=== PATIENT | male | born 1980 | race Caucasian/White ===

== ENCOUNTER → 2017-05-16 | Outpatient (CLI) | payer OTHER ==
[2017-05-16 09:11] LABS: Basophils % (A) 0 %; CH 30.3; CHCM 33.3; Eosinophils # (A) 0.2 k/uL (0-0.7); Eosinophils % (A) 3 %; HCT 46.2 % (39.0-53.0); HGB 15.5 gm/dL (13.0-17.5); Luc # (Auto) 0.12; Luc % (Auto) 2; Lymphocytes # (A) 1.4 k/uL (1.0-4.8); Lymphocytes % (A) 26 %; MCH 30.8 pg (25.0-35.0); MCHC 33.7 g/dL (31.0-37.0); MCV 91.5 fL (80.0-100.0); Mean Platelet Volume 7.5; Monocytes # (A) 0.4 k/uL (0-1.0); Monocytes % (A) 7 %; Neutrophils # (A) 3.3 k/uL (1.3-7.7); Neutrophils % (A) 61 %; RBC 5.05 m/uL (4.30-5.90); RDW 12.7 % (11.5-15.5); WBC 5.5 k/uL (3.8-10.6)
[2017-05-16 09:14] LABS: ALT 23 U/L (21-72); AST 22 U/L (17-59); Alkaline Phosphatase 47 U/L (38-126); Anion Gap 8 mmol/L; Blood Urea Nitrogen 18 mg/dL (9-20); Calcium 9.2 mg/dL (8.4-10.2); Carbon Dioxide 28 mmol/L (22-30); Chloride 102 mmol/L (98-107); Cholesterol 174 mg/dL (<200); Creatine Kinase 121 U/L (55-170); Glucose 95 mg/dL (74-99); HDL Cholesterol 46 mg/dL (40-60); Non-African American GFR(MDRD) >60 (>60 ml/min/1.73 sqM); Potassium 4.9 mmol/L (3.5-5.1); Sodium 138 mmol/L (137-145); Total Bilirubin 0.9 mg/dL (0.2-1.3); Total Protein 7.1 g/dL (6.3-8.2); Uric Acid 7.8 mg/dL (3.5-8.5)
[2017-05-16 09:57] LABS: Hemoglobin A1C 5.8 % (4.2-6.1)
== END | disposition home or self-care (01) ==
LOC: LABWHC1 08:28
PROVIDERS: ATTEND Internal Medicine
DX: E55.9 Vitamin D deficiency, unspecified (principal); I10 Essential (primary) hypertension; E78.1 Pure hyperglyceridemia
CPT/HCPCS: 36415; 80053; 80061; 82306; 82550; 83036; 84439; 84443; 84550; 85025

== ENCOUNTER 2017-06-24 14:16 | Emergency (ER) | payer OTHER ==
--- NOTE | 2017-06-24 15:08 | ED ---
Chest Pain HPI - General Chief Complaint: Chest Pain Stated Complaint: chest pain since 1030 am Time Seen by Provider: 06/24/17 15:03 Source: patient, RN notes reviewed Mode of arrival: ambulatory Limitations: no limitations - History of Present Illness Initial Comments: Is a 37-year-old male with a history of a cardiac workup many modalities since January of this year who presents with complaints of the onset of chest pain that radiated up to his left arm. She has last 1-2 hours sharp in nature did seem to get worse with moving his neck left or right. He has some lightheadedness with it is now essentially resolved. He denies any fevers chills cough phlegm production or other symptoms no trauma. MD Complaint: chest pain - Related Data Home Medications Medication Instructions Recorded Confirmed Aspirin [Adult Low Dose Aspirin EC] 81 mg PO HS 01/12/16 06/24/17 Gemfibrozil [Lopid] 600 mg PO BID 01/12/16 06/24/17 Lisinopril [Zestril] 20 mg PO HS 01/12/16 06/24/17 Spironolactone [Aldactone] 25 mg PO HS 06/24/17 06/24/17 Previous Rx's Medication Instructions Recorded Carvedilol [Coreg] 6.25 mg PO BID #180 tab 01/14/16 Cyclobenzaprine [Flexeril] 10 mg PO TID #14 tab 06/24/17 Ibuprofen 800 mg PO Q6HR PRN #20 tablet 06/24/17 Allergies Allergy/AdvReac Type Severity Reaction Status Date / Time No Known Allergies Allergy Verified 06/24/17 15:58 Review of Systems ROS Statement: Those systems with pertinent positive or pertinent negative responses have been documented in the HPI. ROS Other: All systems not noted in ROS Statement are negative. EKG Findings - EKG Results: EKG: interpreted by ERMD, sinus rhythm (Sinus showed a right bundle-branch block and minimal voltage criteria for LVH rate was 75 SC 154 QRS 168 daily since QTC of 14) Past Medical History Past Medical History: Chest Pain / Angina, GERD/Reflux, Hypertension History of Any Multi-Drug Resistant Organisms: None Reported Past Surgical History: No Surgical Hx Reported Additional Past Surgical History / Comment(s): "age 1- patch on hole in heart", Past Anesthesia/Blood Transfusion Reactions: No Reported Reaction Past Psychological History: No Psychological Hx Reported Smoking Status: Never smoker - Past Family History Father Family Medical History: Deep Vein Thrombosis (DVT) General Exam - General Exam Comments Initial Comments: This is a well-developed well-nourished awake alert oriented times 3 male Limitations: no limitations General appearance: alert, in no apparent distress Head exam: Present: atraumatic, normocephalic, normal inspection Eye exam: Present: normal appearance, PERRL, EOMI. Absent: scleral icterus, conjunctival injection, periorbital swelling ENT exam: Present: normal exam, mucous membranes moist Neck exam: Present: normal inspection. Absent: tenderness, meningismus, lymphadenopathy Respiratory exam: Present: normal lung sounds bilaterally. Absent: respiratory distress, wheezes, rales, rhonchi, stridor Cardiovascular Exam: Present: regular rate, normal rhythm, normal heart sounds. Absent: systolic murmur, diastolic murmur, rubs, gallop, clicks GI/Abdominal exam: Present: soft, normal bowel sounds. Absent: distended, tenderness, guarding, rebound, rigid Extremities exam: Present: normal inspection, full ROM, normal capillary refill. Absent: tenderness, pedal edema, joint swelling, calf tenderness Back exam: Present: normal inspection Neurological exam: Present: alert, oriented X3, CN II-XII intact Psychiatric exam: Present: normal affect, normal mood Skin exam: Present: warm, dry, intact, normal color. Absent: rash Course Vital Signs 06/24/17 06/24/17 14:24 15:55 Temperature 97.1 F L 98.4 F Pulse Rate 78 79 Respiratory 18 18 Rate Blood Pressure 106/57 103/63 O2 Sat by Pulse 99 96 Oximetry - Reevaluation(s) Reevaluation #1: 06/24/17 15:09 EKG shows no change when compared to an EKG dated 01/19/15. Chest Pain MDM - MDM I did review the imaging and reports no acute findings. Patient is symptom free at this time the presentation is consistent with musculoskeletal etiology of pain he'll be discharged she is a follow-up with his doctor return when necessary Disposition Clinical Impression: Chest wall syndrome, Musculoskeletal pain Disposition: HOME SELF-CARE Condition: Good Instructions: Musculoskeletal Pain (ED) Prescriptions: Cyclobenzaprine [Flexeril] 10 mg PO TID #14 tab Ibuprofen 800 mg PO Q6HR PRN #20 tablet PRN Reason: Pain Referrals: Heriberto Vallejo MD [Primary Care Provider] - 1-2 days
[2017-06-24 15:21] LABS: Basophils % (A) 0 %; CH 30.8; CHCM 34.5; Eosinophils # (A) 0.2 k/uL (0-0.7); Eosinophils % (A) 3 %; HCT 42.3 % (39.0-53.0); HDW 2.66; HGB 14.8 gm/dL (13.0-17.5); Luc # (Auto) 0.09; Luc % (Auto) 2; Lymphocytes # (A) 1.5 k/uL (1.0-4.8); Lymphocytes % (A) 27 %; MCH 31.5 pg (25.0-35.0); MCHC 35.1 g/dL (31.0-37.0); MCV 89.7 fL (80.0-100.0); Mean Platelet Volume 7.4; Monocytes # (A) 0.4 k/uL (0-1.0); Monocytes % (A) 6 %; Neutrophils # (A) 3.5 k/uL (1.3-7.7); Neutrophils % (A) 62 %; RBC 4.71 m/uL (4.30-5.90); RDW 12.8 % (11.5-15.5); WBC 5.6 k/uL (3.8-10.6); WBC (Perox) 5.36
[2017-06-24 15:27] LABS: ALT 26 U/L (21-72); AST 18 U/L (17-59); Alkaline Phosphatase 48 U/L (38-126); Anion Gap 11 mmol/L; Blood Urea Nitrogen 17 mg/dL (9-20); Calcium 9.7 mg/dL (8.4-10.2); Carbon Dioxide 23 mmol/L (22-30); Chloride 104 mmol/L (98-107); Glucose 116 mg/dL (74-99); Magnesium 1.8 mg/dL (1.6-2.3); Non-African American GFR(MDRD) >60 (>60 ml/min/1.73 sqM); Potassium 4.8 mmol/L (3.5-5.1); Sodium 138 mmol/L (137-145); Total Bilirubin 0.9 mg/dL (0.2-1.3); Total Protein 7.2 g/dL (6.3-8.2)
[2017-06-24 15:30] LABS: INR 1.1 (<1.2)
[2017-06-24 15:31] LABS: Partial Thromboplastin Time 24.1 sec (22.0-30.0); Prothrombin Time 11.1 sec (9.0-12.0)
[2017-06-24 15:37] LABS: Creatine Kinase 66 U/L (55-170)
--- NOTE | 2017-06-24 15:46 | XR ---
EXAMINATION TYPE: XR chest 2V DATE OF EXAM: 06/24/2017 COMPARISON: 01/19/2015 HISTORY: Chest pain TECHNIQUE: Frontal and lateral views of the chest are obtained. FINDINGS: There is no focal air space opacity, pleural effusion, or pneumothorax seen. The cardiac silhouette size is again mildly enlarged. Right-sided aortic arch is incidentally noted. Median ej rnotomy wires are seen. The osseous structures are intact. IMPRESSION: No acute cardiopulmonary process.
[2017-06-24 15:51] LABS: Creatine Kinase MB 0.5 ng/mL (0.0-2.4); Troponin I <0.012 ng/mL (0.000-0.034)
[2017-06-24 16:41] VITALS: BP 106/64; PULSE 75; RESP 19; TEMP 98.7
== END 2017-06-24 16:47 | disposition home or self-care (01) ==
LOC: EC 14:16
DX: R07.1 Chest pain on breathing (principal); M79.1 Myalgia; I10 Essential (primary) hypertension; Z79.82 Long term (current) use of aspirin; Z79.899 Other long term (current) drug therapy
CPT/HCPCS: 36415; 71020; 80053; 82550; 82553; 83735; 84484; 85025; 85379; 85610; 85730; 93005; 99285

== ENCOUNTER → 2017-06-26 | Outpatient (CLI) | payer OTHER ==
[2017-06-26 10:55] LABS: ALT 21 U/L (21-72); AST 19 U/L (17-59); Cholesterol 152 mg/dL (<200); Creatine Kinase 43 U/L (55-170); HDL Cholesterol 48 mg/dL (40-60)
== END | disposition home or self-care (01) ==
LOC: LABWHC1 09:43
PROVIDERS: ATTEND Internal Medicine
DX: E78.2 Mixed hyperlipidemia (principal)
CPT/HCPCS: 36415; 80061; 82550; 84450; 84460

== ENCOUNTER 2018-08-11 14:52 | Emergency (ER) | payer OTHER ==
[2018-08-11 14:55] VITALS: RESP 18
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
--- NOTE | 2018-08-11 16:32 | ED ---
General Adult HPI - General Chief complaint: Head Injury Stated complaint: Head injury Time Seen by Provider: 08/11/18 14:56 Source: patient, RN notes reviewed Mode of arrival: ambulatory Limitations: no limitations - History of Present Illness Initial comments: 38-year-old male presents to the emergency department for a chief complaint of head injury one week ago. Patient states he was in his basement when he accidentally walked into a metal beam. Patient is unsure if he lost consciousness. Patient denies being on blood thinners. Patient states that today he had a headache with congestion. He states he was seen at urgent care and they recommended coming to the emergency department for a CAT scan to rule out brain bleed. Patient denies any severe headaches over the past week. He denies any vomiting. Patient denies any confusion or photophobia. He denies any fevers or chills at home.Patient has no other complaints at this time including shortness of breath, chest pain, abdominal pain, nausea or vomiting, or visual changes. - Related Data Home Medications Medication Instructions Recorded Confirmed Aspirin [Adult Low Dose Aspirin EC] 81 mg PO HS 01/12/16 06/24/17 Gemfibrozil [Lopid] 600 mg PO BID 01/12/16 06/24/17 Lisinopril [Zestril] 20 mg PO HS 01/12/16 06/24/17 Spironolactone [Aldactone] 25 mg PO HS 06/24/17 06/24/17 Previous Rx's Medication Instructions Recorded Carvedilol [Coreg] 6.25 mg PO BID #180 tab 01/14/16 Cyclobenzaprine [Flexeril] 10 mg PO TID #14 tab 06/24/17 Ibuprofen 800 mg PO Q6HR PRN #20 tablet 06/24/17 Allergies Allergy/AdvReac Type Severity Reaction Status Date / Time No Known Allergies Allergy Verified 08/11/18 14:55 Review of Systems ROS Statement: Those systems with pertinent positive or pertinent negative responses have been documented in the HPI. ROS Other: All systems not noted in ROS Statement are negative. Past Medical History Past Medical History: Chest Pain / Angina, GERD/Reflux, Hypertension History of Any Multi-Drug Resistant Organisms: None Reported Past Surgical History: No Surgical Hx Reported Additional Past Surgical History / Comment(s): "age 1- patch on hole in heart", Past Anesthesia/Blood Transfusion Reactions: No Reported Reaction Past Psychological History: No Psychological Hx Reported Smoking Status: Never smoker Past Alcohol Use History: None Reported Past Drug Use History: None Reported - Past Family History Father Family Medical History: Deep Vein Thrombosis (DVT) General Exam Limitations: no limitations General appearance: alert, in no apparent distress Head exam: Present: atraumatic, normocephalic, normal inspection Eye exam: Present: normal appearance, PERRL, EOMI. Absent: scleral icterus, conjunctival injection, periorbital swelling ENT exam: Present: normal exam, normal oropharynx, mucous membranes moist, TM's normal bilaterally, normal external ear exam Neck exam: Present: normal inspection. Absent: tenderness, meningismus, lymphadenopathy Respiratory exam: Present: normal lung sounds bilaterally. Absent: respiratory distress, wheezes, rales, rhonchi, stridor Cardiovascular Exam: Present: regular rate, normal rhythm, normal heart sounds. Absent: systolic murmur, diastolic murmur, rubs, gallop, clicks Neurological exam: Present: alert, oriented X3, CN II-XII intact Expanded Patient oriented to: Present: person, place, time Speech: Present: fluid speech Cranial nerves: EOM's Intact: Normal, Tongue Deviation: Normal, Nystagmus: Normal, Facial Sensation: Normal Cerebellar function: Finger to Nose: Normal, Heel to Brown: Normal, Romberg: Normal Upper motor neuron: Pronator Drift: Normal Sensory exam: Upper Extremity Light Touch: Normal, Upper Extremity Pin Prick: Normal, Lower Extremity Light Touch: Normal, Lower Extremity Pin Prick: Normal Motor strength exam: RUE: 5, LUE: 5, RLE: 5, LLE: 5 Eye Response: (4) open spontaneously Motor Response: (6) obeys commands Verbal Response: (5) oriented Mario Total: 15 Psychiatric exam: Present: normal affect, normal mood Course Vital Signs 08/11/18 08/11/18 14:53 16:45 Temperature 98.7 F 97.8 F Pulse Rate 79 91 Respiratory 18 18 Rate Blood Pressure 111/73 131/83 O2 Sat by Pulse 100 98 Oximetry Medical Decision Making - Medical Decision Making 38-year-old male presents to the emergency department for a chief complaint of head injury one week ago. Patient states that he hit his head against a metal beam while in his basement. He is not sure if he lost consciousness. He denies any significant headaches, vomiting, confusion over the past week. He does state that he had a mild headache with congestion earlier today and was seen at urgent care. They recommended he come to the ER for CAT scan to rule out brain bleed. On exam no focal neuro deficits. Patient is well-appearing. I did speak with patient about risks versus benefits of CAT scan including the low likelihood of the significant brain bleed 3 weeks after injury as well as high amount of radiation. Patient states the urgent care physician was concerned and he would like to "make sure." CT brain shows no acute intracranial hemorrhage, mass effect, or midline shift. No acute fracture or dislocation in the cervical spine. At this time I gave patient concussion precautions. He will follow up with primary care in 1-2 days. He will return if he has any worsening symptoms. Disposition Clinical Impression: Head injury Disposition: HOME SELF-CARE Condition: Good Instructions: Concussion (ED), Head Injury (ED) Additional Instructions: Please do not participate in contact sports until you have received clearance from primary care. Please follow up with primary care in 1-2 days. Please return to the emergency department if you have any worsening symptoms. Is patient prescribed a controlled substance at d/c from ED?: No Referrals: Heriberto Vallejo MD [Primary Care Provider] - 1-2 days Time of Disposition: 16:31
[2018-08-11 16:46] VITALS: BP 131/83; PULSE 91; TEMP 97.8
== END 2018-08-11 16:39 | disposition home or self-care (01) ==
LOC: EC 14:52
DX: S09.90XA Unspecified injury of head, initial encounter (principal); I10 Essential (primary) hypertension; Z79.82 Long term (current) use of aspirin; Z79.899 Other long term (current) drug therapy; W22.8XXA Striking against or struck by other objects, initial encounter; Y92.89 Other specified places as the place of occurrence of the external cause
CPT/HCPCS: 70450; 72125; 99283

== ENCOUNTER 2019-03-31 08:58 | Emergency (ER) | payer OTHER, BC ==
[2019-03-31 09:17] LABS: Glucose,Whole Blood 113 mg/dL (75-99)
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
[2019-03-31 09:48] LABS: Basophils % (A) 0 %; Eosinophils # (A) 0.2 k/uL (0-0.7); Eosinophils % (A) 4 %; HCT 44.8 % (39.0-53.0); HGB 14.4 gm/dL (13.0-17.5); Lymphocytes # (A) 1.3 k/uL (1.0-4.8); Lymphocytes % (A) 26 %; MCH 29.3 pg (25.0-35.0); MCHC 32.1 g/dL (31.0-37.0); MCV 91.3 fL (80.0-100.0); Mean Platelet Volume 6.9; Monocytes # (A) 0.3 k/uL (0-1.0); Monocytes % (A) 6 %; Neutrophils # (A) 3.3 k/uL (1.3-7.7); Neutrophils % (A) 63 %; Platelet Count 216 k/uL (150-450); RDW 12.7 % (11.5-15.5); WBC 5.2 k/uL (3.8-10.6)
[2019-03-31 09:50] LABS: ALT 15 U/L (21-72); AST 26 U/L (17-59); African American GFR (CKD) >90 (>60 ml/min/1.73 sqM); Albumin 4.4 g/dL (3.5-5.0); Alcohol <10 mg/dL; Alkaline Phosphatase 57 U/L (38-126); Anion Gap 9 mmol/L; Blood Urea Nitrogen 19 mg/dL (9-20); Calcium 9.4 mg/dL (8.4-10.2); Carbon Dioxide 26 mmol/L (22-30); Chloride 105 mmol/L (98-107); Glucose 112 mg/dL (74-99); Potassium 5.3 mmol/L (3.5-5.1); Sodium 140 mmol/L (137-145); Total Bilirubin 0.8 mg/dL (0.2-1.3); Total Protein 7.2 g/dL (6.3-8.2)
[2019-03-31 09:56] LABS: INR 0.9 (<1.2); Partial Thromboplastin Time 22.1 sec (22.0-30.0); Prothrombin Time 10.1 sec (9.0-12.0)
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
--- NOTE | 2019-03-31 10:28 | XR ---
EXAMINATION TYPE: XR hand complete LT , 3 VIEWS DATE OF EXAM ORDERED: 03/31/2019 HISTORY: Pain. COMPARISON: None. FINDINGS: Intra-articular fracture of the liver reveals styloid is again identified. No additional f ractures about the hand are seen. IMPRESSION: MINIMALLY DISPLACED FRACTURE THE RADIAL STYLOID. CODE A: INITIAL ENCOUNTER FOR CLOSED FRACTURE.
--- NOTE | 2019-03-31 10:29 | XR ---
EXAMINATION TYPE: XR shoulder complete RT , 3 VIEWS DATE OF EXAM ORDERED: 03/31/2019 HISTORY: trauma. COMPARISON: None. FINDINGS: Osseous structures about the shoulder are normal. No fracture or dislocation is seen. Ther e is no significant degenerative change. IMPRESSION: NO ACUTE OSSEOUS LESION.
[2019-03-31] MEDS ORDERED: ACET/COD 300 MG/30 MG STARTER PACK 6 TAB BTL PO STA (10:56)
[2019-03-31 12:33] VITALS: BP 134/84; PULSE 88; RESP 16; TEMP 98
== END 2019-03-31 12:18 | disposition home or self-care (01) ==
LOC: EC 08:58
DX: S52.512A Displaced fracture of left radial styloid process, initial encounter for closed fracture (principal); S06.0X0A Concussion without loss of consciousness, initial encounter; S00.412A Abrasion of left ear, initial encounter; I45.10 Unspecified right bundle-branch block; I10 Essential (primary) hypertension; Z79.82 Long term (current) use of aspirin; Z86.79 Personal history of other diseases of the circulatory system; V47.5XXA Car driver injured in collision with fixed or stationary object in traffic accident, initial encounter; Y92.414 Local residential or business street as the place of occurrence of the external cause
CPT/HCPCS: 99285; 36415; 93005; 86900; 86901; 80053; 85025; 85610; 85730; 86850; 80320; 73030; 73110; 73130; 72125; 70450; 71260; 74177; Q9967

== ENCOUNTER → 2023-10-03 | Outpatient (CLI) | payer OTHER ==
--- NOTE | 2023-10-03 13:25 | CT ---
EXAMINATION TYPE: CT abdomen pelvis wo con DATE OF EXAM: 10/03/2023 COMPARISON: None HISTORY: flank pain, issues with urination, r/o stones. CT DLP: 1313 mGycm Automated exposure control for dose reduction was used. TECHNIQUE: Helical acquisition of images was performed from the lung bases through the pelvis. FINDINGS: The lung bases are clear. There are 2 tiny nonobstructing miladys-like calcifications in the right kidney. There are no left jackie l calcifications. There is no hydronephrosis. Caliber the abdominal aorta is normal. There is no retroperitoneal adenopathy or hemorrhage. The gallbladder is normal. There is no organomegaly involving the liver, pancreas, spleen or adrenal glands. The bowel loops are normal in caliber is no dilatation or obstruction. No inflammatory changes identi fied in the bowel wall or mesentery and there is no free intraperitoneal air or fluid. There is no pelvic mass, free fluid, abscess or adenopathy. The prostate gland is not enlarged but th ere is prostatic calcification. No focal osseous lesions are seen. IMPRESSION: 1. 2 tiny nonobstructing miladys-like calcifications in the right kidney. There is no hydronephrosis. 2. No other significant abnormality seen.
== END | disposition home or self-care (01) ==
LOC: RADCTMAIN 11:29
PROVIDERS: ATTEND Internal Medicine
DX: N20.0 Calculus of kidney (principal); N28.89 Other specified disorders of kidney and ureter
CPT/HCPCS: 74176

== ENCOUNTER → 2024-05-20 | Outpatient (CLI) | payer BC | END | disposition home or self-care (01) | LOC: LABPRL 12:34 | PROVIDERS: ATTEND Internal Medicine | DX: Z00.00 Encounter for general adult medical examination without abnormal findings (principal); I10 Essential (primary) hypertension; E78.2 Mixed hyperlipidemia; N20.0 Calculus of kidney; R73.01 Impaired fasting glucose | CPT/HCPCS: 80053; 80061; 83036; 83735; 83970; 84443; 84550; 85025 ==

== ENCOUNTER → 2024-10-07 | Outpatient (CLI) | payer BC ==
--- NOTE | 2024-10-09 21:54 | NM ---
EXAMINATION TYPE: NM parathyroid w/spect DATE OF EXAM: 10/07/2024 COMPARISON: NONE CLINICAL INDICATION: Male, 44 years old with history of R79.89 elevated parathyroid hormone; TECHNIQUE: Following administration of 23 mCi Tc99m Sestamibi. Anterior projection images of the neck and chest were obtained 10 minutes and 3 hours post injection. SPECT images of the neck and chest were obtaine d and reconstructed in three axes. FINDINGS: Thyroid tracer washout: Delayed images demonstrate near-complete tracer washout from the thyroid. Parathyroid uptake: None. The delayed images do not demonstrate any focal abnormal persistent uptake in the region of the parathyroid glands to suggest parathyroid adenoma. Normal uptake: There is physiological tracer uptake in the salivary glands, and thyroid gland. IMPRESSION: No suspicious findings for abnormal uptake to suggest parathyroid adenoma within the [id number]. [facility], , 10/09/2024 9:52 PM
== END | disposition home or self-care (01) ==
LOC: RADNMMAIN 08:21
PROVIDERS: ATTEND Internal Medicine
DX: R79.89 Other specified abnormal findings of blood chemistry (principal)
CPT/HCPCS: 78071; A9500